=== PATIENT | male | born 1935 | race Asian ===

== ENCOUNTER → 2018-01-24 | Outpatient (CLI) | payer MEDICARE, OTHER ==
[~2018-01-24] MED LIST: ALLO300T2 PO; AMLO5TAB66 PO; APIX2.5T PO; CLOP75 PO; ISOS30TA6 PO; LEVO25TA9 PO; MULT-248 PO; PRAV40TA3 PO; RANO500T3 PO; SOTA80 PO
== END | disposition home or self-care (01) ==
LOC: RADPV 09:10
PROVIDERS: ATTEND Internal Medicine Nephrology
DX: I12.0 Hypertensive chronic kidney disease with stage 5 chronic kidney disease or end stage renal disease (principal); N18.5 Chronic kidney disease, stage 5
CPT/HCPCS: 76770